=== PATIENT | female | born 1995 | race Caucasian/White ===

== ENCOUNTER 2018-07-11 13:09 | Emergency (ER) | payer OTHER ==
[~2018-07-11] VITALS: Ht 167.6 cm; Wt 63.5 kg
[2018-07-11] MEDS ORDERED: SPRINTEC 28 DA1 EACH PO (13:31)
== END 2018-07-11 18:14 | disposition home or self-care (01) ==
LOC: ER 13:09
DX: R10.9 Unspecified abdominal pain (principal)

== ENCOUNTER 2021-08-19 10:47 | Outpatient (CLI) | payer OTHER ==
[~2021-08-19 10:47] MED LIST: SPRINTEC 28 DA1 EACH PO
== END 2021-08-19 10:48 | disposition home or self-care (01) ==
LOC: NUCLEAR 10:47
PROVIDERS: ATTEND Physical Medicine & Rehabilitation
DX: I87.2 Venous insufficiency (chronic) (peripheral) (principal)